=== PATIENT | male | born 1960 | race Caucasian/White ===

== ENCOUNTER 2019-12-15 05:24 | Emergency (ER) | payer OTHER ==
[2019-12-15 05:54] LABS: #Eosinphils 0.1 thou/uL (0.0-0.7); #Lymphocytes 1.9 thou/uL (1.20-3.40); #Monocytes 0.6 thou/uL (0.11-0.59); #Neutrophils 3.6 thou/uL (1.40-6.50); %Basophils 0.5 % (0.0-1.0); %Eosinophils 2.2 % (0.0-10.0); %Lymphocytes 29.9 % (21.0-51.0); %Monocytes 10.3 % (0.0-10.0); %Neutrophils 57.2 % (42.0-75.0); Hemoglobin 16.1 g/dL (14.0-18.0); Mean Corpuscular Hemoglobin 32.2 pg (27.0-31.0); Mean Corpuscular Volume 92.1 fL (78.0-98.0); Mean Platelet Volume 8.9 fL (7.4-10.4); Platelet Count 210 thou/uL (130-400); RBC Distribution Width 11.7 % (11.5-14.5); Red Blood Cell (RBC) Count 5.01 mill/uL (4.70-6.10); White Blood Cell (WBC) Count 6.3 thou/uL (4.8-10.8)
[2019-12-15 06:01] LABS: PTT 25.6 SEC (22.9-36.1); Prothrombin Time 13.1 SEC (12.0-14.7)
[2019-12-15] MEDS ORDERED: Fentanyl 100 MCG/2 ML VIAL ONE ×2 (06:04→07:21)
[2019-12-15 06:15] LABS: ALT (SGPT) 115 U/L (8-55); AST (SGOT) 74 U/L (5-34); Albumin 4.7 g/dL (3.5-5.0); Alcohol Less than 10 mg/dL (Less than 10); Alkaline Phosphatase 67 U/L (40-110); Anion Gap 17 mmol/L (10-20); BUN (Urea Nitrogen) 16 mg/dL (8.4-25.7); Bilirubin, Total 0.7 mg/dL (0.2-1.2); Calc. Creatinine Clearance 0 mL/min (70-130); Carbon Dioxide 20 mmol/L (22-29); Chloride 109 mmol/L (98-107); Estimated GFR-MDRD 63; Globulin 3.1 g/dL (2.4-3.5); Glucose 107 mg/dL (70-105); Potassium 3.6 mmol/L (3.5-5.1); Protein, Total 7.8 g/dL (6.0-8.3); Sodium 142 mmol/L (136-145)
[2019-12-15] MEDS ORDERED: Adacel (T-DAP) 0.5 ML SYRINGE ONE (07:21)
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
[2019-12-15] MEDS ORDERED: Iopamidol-370 76% 500 ML 1 ML ONE (10:24)
== END 2019-12-15 08:00 | disposition home or self-care (01) ==
LOC: ERS 05:24
DX: S22.22XA Fracture of body of sternum, initial encounter for closed fracture (principal); V89.2XXA Person injured in unspecified motor-vehicle accident, traffic, initial encounter
CPT/HCPCS: 70450; 71045; 71260; 72125; 74177; 80053; 80307; 84484; 85025; 85610; 85730; 90471; 90715; 93005; 94799; 96374; 96376; J3010; Q9967

== ENCOUNTER 2019-12-19 11:21 | Outpatient (CLI) | payer OTHER ==
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
== END 2019-12-19 11:22 | disposition home or self-care (01) ==
LOC: BICRAD 11:21
PROVIDERS: ATTEND Family Medicine
DX: M89.8X1 Other specified disorders of bone, shoulder (principal); S22.22XA Fracture of body of sternum, initial encounter for closed fracture; M19.012 Primary osteoarthritis, left shoulder
CPT/HCPCS: 71120

== ENCOUNTER 2020-02-29 07:37 | Outpatient (CLI) | payer OTHER ==
--- NOTE | 2020-02-29 08:35 | ULT ---
ULTRASOUND ABDOMEN COMPLETE: DATE: 02/29/2020 HISTORY: K 76.9, liver lesion. 59-year-old male with incompletely characterized lesion in right lobe of liver on CT of 12/15/2019 FINDINGS: Liver:Diffusely mildly increased echogenicity without signal dropout in the deep portions. This could be normal or could represent mild fatty liver. 2 x 2 x 2 cm cyst in hepatic segment 2 of left lobe. 2.5 x 2 x 2 cm cyst in hepatic segment 6 of right lobe corresponds to the indeterminate lesion on the CT. Gallbladder:Normal wall thickness. No gallstones or sludge. No pericholecystic fluid. Common duct:4 mm Spleen:No splenomegaly Pancreas:Nonspecific sonographic appearance Kidneys:No hydronephrosis. Hypoechoic focus at left renal upper-mid pole measured as 1.5 x 1.5 x 2 cm by rfid manager, with appearance of cyst. However, no such cyst is identified in the left kidney on the recent CT. Therefore, this could be artifact. Abdominal aorta:No aneurysm Inferior vena cava:Unremarkable where visualized. IMPRESSION: both hepatic lesions demonstrated on the prior CT are demonstrated to be benign hepatic cysts on this ultrasound.
== END 2020-02-29 07:38 | disposition home or self-care (01) ==
LOC: BICULT 07:37
PROVIDERS: ATTEND Family Medicine
DX: K76.9 Liver disease, unspecified (principal)
CPT/HCPCS: 93975

== ENCOUNTER 2023-12-21 07:59 | Outpatient (CLI) | payer OTHER | END 2023-12-21 08:00 | disposition home or self-care (01) | LOC: BICRAD 07:59 | PROVIDERS: ATTEND Family Medicine | DX: M54.41 Lumbago with sciatica, right side (principal); M47.816 Spondylosis without myelopathy or radiculopathy, lumbar region | CPT/HCPCS: 72100 ==